=== PATIENT | female | born 1980 | race Two or more races ===

== ENCOUNTER 2020-12-27 09:49 | Emergency (ER) | payer BC ==
[~2020-12-27] VITALS: Ht 170.2 cm; Wt 77.2 kg
[2020-12-27 10:20] VITALS: BP 136/88
[2020-12-27 10:21] LABS: BILIRUBIN,URINE MODERATE (NEG); CLARITY,URINE TURBID; COLOR,URINE RED; NITRITE,URINE NEGATIVE (NEG); PH,URINE 6.5 (<5.0-8.0); PROTEIN,URINE 100 mg/dL (NEG-TRACE)
[2020-12-27 10:34] LABS: BACTERIA,URINE FEW /HPF (0-FEW); RBC,URINE TNTC /HPF (0-2)
[2020-12-27] MEDS ORDERED: NITR100C62 PO (10:44)
--- NOTE | 2020-12-27 10:49 | ED.ADGEN ---
Past Medical History Past Medical History: No Pertinent History Past Surgical History: Smoking Status: Never Smoker Alcohol Use: None General Adult EDM: Chief Complaint: PAIN ON URINATION HPI: HPI: Patient is a 40 year old female coming in for dysuria, frequency, and hematuria. Patient states she has had some dysuria and frequency over the past 1.5 weeks but has been getting worse over the past few days. Patient started taking ampicillin that she got from [place] once a day 3 days ago. Last dose this morning. No systemic complaints. No vaginal bleeding or discharge. Denies any abdominal pain Review of Systems: Review of Systems: All other systems within normal limits except for as noted in the HPI Allergies: Allergies: Allergies Coded Allergies Type Severity Reaction Last Updated Verified No Known Drug Allergies 12/27/20 No Physical Exam: PE: Constitutional: Well developed, well nourished, no acute distress, non-toxic appearance. [] HENT: Normocephalic, atraumatic, bilateral external ears normal, nose normal. [] Eyes: PERRLA, conjunctiva normal, no discharge. [] Neck: No rigidity, supple, no stridor. [] Cardiovascular: Regular rate and rhythm, brisk cap refill [] Lungs & Thorax: Non labored symmetric respirations, no tachypnea or respiratory distress [] Abdomen: Soft, nondistended. Skin: Warm, dry, no erythema, no rash. [] Back: Unremarkable Extremities: No deformities, range of motion grossly intact, no lower extremity edema [] Neurologic: Alert and oriented X 3, no focal deficits noted. [] Psychologic: Affect normal, judgement normal, mood normal. [] Current Patient Data: Labs: Laboratory Tests Test 12/27/20 10:00 12/27/20 10:03 Urine Collection Type Void Urine Color Red Urine Clarity Turbid Urine pH 6.5 (<5.0-8.0) Urine Specific [place] 1.025 (1.000-1.030) Urine Protein 100 mg/dL (NEG-TRACE) Urine Glucose (UA) Negative mg/dL (NEG) Urine Ketones (Stick) 15 mg/dL (NEG) Urine Blood Large (NEG) Urine Nitrite Negative (NEG) Urine Bilirubin Moderate (NEG) Urine Urobilinogen Dipstick 1.0 mg/dL (0.2 mg/dL) Urine Leukocyte Esterase Large (NEG) Urine RBC Tntc /HPF (0-2) Urine WBC 5-10 /HPF (0-4) Urine Squamous Epithelial Cells Few /LPF Urine Bacteria Few /HPF (0-FEW) Urine Mucus Slight /LPF POC Urine HCG, Qualitative Hcg negative (Negative) Vital Signs: Vital Signs Date Time Temp Pulse Resp B/P (MAP) Pulse Ox O2 Delivery O2 Flow Rate FiO2 12/27/20 10:20 98.2 97 16 136/88 (104) 100 Room Air 98.2 EKG: EKG: [] Heart Score: C/O Chest Pain: No Risk Factors: Risk Factors: DM, Current or recent (<one month) smoker, HTN, HLP, family history of CAD, obesity. Risk Scores: Score 0 - 3: 2.5% MACE over next 6 weeks - Discharge Home Score 4 - 6: 20.3% MACE over next 6 weeks - Admit for Clinical Observation Score 7 - 10: 72.7% MACE over next 6 weeks - Early Invasive Strategies Radiology/Procedures: Radiology/Procedures: [] Course & Med Decision Making: Course & Med Decision Making Pertinent Labs and Imaging studies reviewed. (See chart for details) [] Dragon Disclaimer: Dragon Disclaimer: This electronic medical record was generated, in whole or in part, using a voice recognition dictation system. Departure Departure Impression: Primary Impression: Cystitis Disposition: HOME / SELF CARE / HOMELESS Condition: STABLE Referrals: NO PCP (PCP) Patient Instructions: Urinary Tract Infection Scripts Nitrofurantoin Monohyd/M-Cryst (MACROBID 100 MG CAPSULE) 100 Mg Capsule 1 CAP PO BID for 5 Days, #10 CAP 0 Refills Prov: WALDO EDMOND MD 12/27/20 WALDO EDMOND MD Dec 27, 2020 10:49
== END 2020-12-27 11:05 | disposition home or self-care (01) ==
LOC: ER 09:49
DX: N30.90 Cystitis, unspecified without hematuria (principal)
CPT/HCPCS: 81001; 81025; 87077; 87086; 87186; 99283